=== PATIENT | female | born 1980 | race Asian ===

== ENCOUNTER 2023-06-15 15:12 | Outpatient (CLI) | payer BC | END 2023-06-15 19:00 | disposition home or self-care (01) | LOC: SCT 15:12 | PROVIDERS: ATTEND Specialist | DX: N85.8 Other specified noninflammatory disorders of uterus (principal); N85.4 Malposition of uterus; K42.9 Umbilical hernia without obstruction or gangrene; R10.2 Pelvic and perineal pain; N94.89 Other specified conditions associated with female genital organs and menstrual cycle | CPT/HCPCS: 72192-TC ==